=== PATIENT | female | born 1995 | race Caucasian/White ===

== ENCOUNTER 2016-06-03 21:05 | Emergency (ER) | payer OTHER ==
--- NOTE | 2016-06-03 21:21 | ER Document Report ---
[id number] by provider: 21:17 Mode of Arrival: Ambulatory Information source: Patient - HPI Patient complains to provider of: VOMITING AND BLOODY STOOLS Onset: This morning Onset/Duration: Sudden Quality of pain: Sharp, Stabbing Severity: Moderate Pain Level: 3 Associated Symptoms: Abdominal pain, Diarrhea - STARTED OUT DIARRHEA, NOW BLOODY. MULTIPLE STOOL. DENIES RECENT ANTIBIOTIC USE., Nausea, Vomiting. denies: Fever Exacerbated by: Denies Relieved by: Denies Similar symptoms previously: No Recently seen / treated by doctor: No - Related Data Smoking: Non-smoker Frequency of alcohol use: None Drug Abuse: None Pertinent History: ASTHMA Allergies/Adverse Reactions: Penicillins Allergy (Verified 06/03/16 21:19) Sulfa (Sulfonamide Antibiotics) Allergy (Verified 06/03/16 21:19) Physical Exam - Vital signs Vitals: Temp Pulse Resp BP Pulse Ox 97.6 F 92 18 133/90 H 97 06/03/16 21:09 06/03/16 21:09 06/03/16 21:09 06/03/16 21:09 06/03/16 21:09 Course - Vital Signs Vital signs: Temp Pulse Resp BP Pulse Ox 97.6 F 92 18 133/90 H 97 06/03/16 21:09 06/03/16 21:09 06/03/16 21:09 06/03/16 21:09 06/03/16 21:09
[2016-06-03 21:42] LABS: ABSOLUTE EOSINOPHILS # (AUTO) 0.3 10^3/uL (0.0-0.6); ABSOLUTE LYMPHOCYTES (AUTO) 1.5 10^3/uL (0.5-4.7); ABSOLUTE MONOCYTES (AUTO) 0.6 10^3/uL (0.1-1.4); ABSOLUTE NEUT (AUTO) 6.1 10^3/uL (1.7-8.2); BASOPHILS % (AUTO) 0.2 % (0-2); EOSINOPHILS % (AUTO) 3.8 % (0-6); HEMATOCRIT 37.9 % (36.0-47.0); HEMOGLOBIN 12.9 g/dL (12.0-15.5); HGB HCT DIFFERENCE 0.8; LYMPHOCYTES % (AUTO) 17.5 % (13-45); MEAN CORPUSCULAR HEMOGLOBIN 30.3 pg (27.0-33.4); MEAN CORPUSCULAR HGB CONC 34.2 g/dL (32.0-36.0); MEAN CORPUSCULAR VOLUME 89 fl (80-97); MONOCYTES % (AUTO) 6.7 % (3-13); RED BLOOD COUNT 4.27 10^6/uL (3.72-5.28); RED CELL DISTRIBUTION WIDTH 12.6 % (11.5-14.0); SEGMENTED NEUTROPHILS % (AUTO) 71.8 % (42-78); WHITE BLOOD COUNT 8.6 10^3/uL (4.0-10.5)
[2016-06-03 21:55] LABS: ALANINE AMINOTRANSFERASE 35 U/L (9-52); ALBUMIN 4.8 g/dL (3.5-5.0); ALKALINE PHOSPHATASE 90 U/L (38-126); ANION GAP 12 (5-19); ASPARTATE AMINO TRANSFERASE 28 U/L (14-36); BILIRUBIN,TOTAL 0.9 mg/dL (0.2-1.3); BLOOD UREA NITROGEN 10 mg/dL (7-20); CALCIUM 9.7 mg/dL (8.4-10.2); CARBON DIOXIDE 26 mmol/L (22-30); CHLORIDE 104 mmol/L (98-107); GLUCOSE 95 mg/dL (75-110); LIPASE 62.9 U/L (23-300); POTASSIUM 4.1 mmol/L (3.6-5.0); SODIUM 142.2 mmol/L (137-145); TOTAL PROTEIN 8.2 g/dL (6.3-8.2)
[2016-06-03 22:20] LABS: APPEARANCE,URINE CLEAR; BILIRUBIN,URINE NEGATIVE (NEGATIVE); GLUCOSE, URINE NEGATIVE (NEGATIVE); KETONES,URINE NEGATIVE (NEGATIVE); LEUKOCYTE ESTERASE,URINE NEGATIVE (NEGATIVE); NITRITE,URINE NEGATIVE (NEGATIVE); PROTEIN,URINE NEGATIVE (NEGATIVE); URINE SPECIFIC GRAVITY 1.021; UROBILINOGEN,URINE NEGATIVE mg/dL (<2.0)
[2016-06-03] MEDS ORDERED: ONDANSETRON 4 MG TAB.RAPDIS PO ONE (22:25)
[2016-06-03] MEDS ORDERED: DICYCLOMINE HCL 20 MG TABLET PO ONE (22:26)
--- NOTE | 2016-06-03 23:04 | ER Document Report ---
[id number] 4d VOMITING AND BLOODY STOOLS Mode of Arrival: Ambulatory Notes: Patient is a 21-year-old old female presents with complaint of vomiting and diarrhea. She says that she's had clear emesis without any blood or emesis. No fevers. She has had some crampy abdominal pain. She has noticed blood in her stool and it has been watery. This is first time she ever noticed blood in her stool. No recent troubles of the country. She developed that she has a dog and and is up-to-date vaccinations and shots. She does not drink untreate water. No recent antibiotics use. No other complaints at this time. - Related Data Allergies/Adverse Reactions: Penicillins Allergy (Verified 06/03/16 21:19) Sulfa (Sulfonamide Antibiotics) Allergy (Verified 06/03/16 21:19) Past Medical History - General Information source: Patient - Social History Smoking Status: Never Smoker Frequency of alcohol use: None Drug Abuse: None Family History: Reviewed & Not Pertinent Patient has suicidal ideation: No Patient has homicidal ideation: No Renal/ Medical History: Denies: Hx Peritoneal Dialysis Review of Systems - Review of Systems Notes: My Normal Review Basic REVIEW OF SYSTEMS: CONSTITUTIONAL : Denies fever, chills, or sweats. Denies recent illness. RESPIRATORY: Denies cough, cold, or chest congestion. Denies shortness of breath, difficulty breathing, or wheezing. GASTROINTESTINAL: Crampy lower abdominal pain. Some vomiting. Bloody diarrhea.. Denies constipation. GENITOURINARY: Denies difficulty urinating, painful urination, burning, frequency, or blood in urine. FEMALE GENITOURINARY: Denies vaginal bleeding, abnormal or irregular periods. LMP: MUSCULOSKELETAL: Denies neck or back pain or joint pain or swelling. SKIN: Denies rash or skin lesions. NEUROLOGICAL: Denies altered mental status or loss of consciousness. Denies headache. Denies weakness or paralysis or loss of use of either side. Denies problems with gait or speech. Denies sensory or motor loss. ALL OTHER SYSTEMS REVIEWED AND NEGATIVE. Physical Exam - Vital signs Vitals: Temp Pulse Resp BP Pulse Ox 97.6 F 92 18 133/90 H 97 06/03/16 21:09 06/03/16 21:09 06/03/16 21:09 06/03/16 21:09 06/03/16 21:09 - Notes Notes: General Appearance: Well nourished, alert, cooperative, no acute distress, no obvious discomfort. Well-appearing. Vitals: reviewed, See vital signs table. Head: no swelling or tenderness to the head Eyes: PERRL, EOMI, Conjuctiva clear Mouth: No decreasd moisture Neck: Supple, no neck tenderness, No thyromegaly Lungs: No wheezing, No rales, No rhonci, No accessory muscle use, good air exchange bilaterally. Heart: Normal rate, Regular rythm, No murmur, no rub Abdomen: Normal BS, soft, No rigidity, mild lower abdominal tenderness to palpation, No guarding, no rebound, no abdominal masses, no organomegaly Rectal exam: No gross blood on external rectal exam. No hemorrhoids. No fissures. Extremities: strength 5/5 in all extremities, good pulses in all extremities, no swelling or tenderness in the extremities, no edema. Skin: warm, dry, appropriate color, no rash Neuro: speech clear, oriented x 3, normal affect, responds appropriately to questions. Course - Vital Signs Vital signs: Temp Pulse Resp BP Pulse Ox 97.9 F 78 16 128/78 H 99 06/04/16 00:10 06/04/16 00:10 06/04/16 00:10 06/04/16 00:10 06/04/16 00:10 - Laboratory Result Diagrams: 06/03/16 21:20 06/03/16 21:20 Laboratory results interpreted by me: 06/03/16 22:00 Stool for White Cells MANY H - Transfer of Care Notes: 06/04/16 00:48 I suspect that the patient probably has infectious diarrhea. Suspect this she developed vomiting and diarrhea sore time and that she has some blood in her stool. Her CBC is completely normal. Chemistry panels normal. Her C. difficile testing is negative. Her stools been sent for culture and the culture results are pending. I will place her on Cipro. She has no history of inflammatory bowel disease. I think this is unlikely; however, I informed her that if she can do 70 blood in her stool after 3-4 days and she should follow- up with GI physician. Informed her to return to ER immediately if the bleeding gets worse, she has fevers, worsening pain, or feels unwell. The patient agrees with plan and will be discharged home. I did inform her to call the culture follow up number to get the results for stool cultures. Dictation of this chart was performed using voice recognition software; therefore, there may be some unintended grammatical errors. Discharge - Discharge Clinical Impression: Bloody diarrhea Condition: Good Disposition: HOME, SELF-CARE Additional Instructions: VOMITING: Vomiting (or nausea without vomiting) can be caused by many other different problems. It can mean that something's wrong with the stomach, such as ulcers or inflammation or the intestinal tract, such as appendicitis. But it can also be a symptom of a problem that has nothing to do with the stomach or intestines. Vomiting is common with severe headaches, earaches, tonsillitis, and kidney infections, etc. We see it with pneumonia or heart attacks. Drugs can cause nausea and vomiting. Many abdominal problems cause vomiting; for example, gallstones, kidney stones, pancreatitis, and intestinal obstruction ( blocked bowels). In most cases, curing the vomiting depends on fixing the problem that caused it. For temporary relief, we may use an anti-nausea medicine. For home use, we can prescribe suppositories, chewable pills, pills that dissolve in the mouth, or liquid anti-nausea drugs. If the vomiting seems to be caused by a problem in the stomach, acid-suppressing drugs may be prescribed as well. It's important to avoid dehydration. Sip small amounts of clear liquids ( soft drinks, tea, broth, etc) . Try to take fluids frequently even if you are vomiting to prevent dehydration. Take increasing amounts of fluid and when liquids are being consumed successfully, advance to small amounts of bland food (toast, soups, mashed potatoes, etc.) until you are able to resume a regular diet. Avoid aspirin, tobacco, and alcohol. If the vomiting worsens, if the problem that's making you vomit worsens, or if there's evidence of bleeding in the stomach (such as black, tarry stool, or bloody or black vomit), you should return immediately. Also, return if abdominal pain worsens or becomes localized to one area or you develop high fever. Call your doctor if you aren't improved in 24 hours. DIARRHEA, NON-SPECIFIC: Diarrhea means frequent, watery stools. There are many causes. Any problem that keeps the intestinal tract from absorbing water from the stool can lead to diarrhea. A sudden new diarrhea problem is usually caused by a virus, food sensitivity, toxic bacteria, or drugs. In this case, we expect the problem to go away soon. Testing is done only if you seem seriously ill from the diarrhea. If you have chronic diarrhea, or diarrhea that keeps coming back, we need to find out why. Chronic diarrhea can be due to inflammation of the bowels such as Crohn's disease or ulcerative colitis, food sensitivity such as intolerance to lactose or wheat protein, irritable bowel syndrome, and other problems. If your diarrhea is a significant problem but it's not clear why you have it, we' ll refer you to a specialist for further testing. During an episode of diarrhea, drink small amounts (two to six ounces) of clear liquids (soft drinks, sport drinks, herb teas, broth, etc). Take fluids frequently to prevent dehydration. As the diarrhea eases, advance to small amounts of bland food (mashed potato, toast) for 24 hours. Call the physician if blood appears in your vomit or stool, if vomiting lasts longer than 24 hours, if the abdominal pain worsens or becomes localized to one area, if you develop high fever, or if you become lightheaded and weak. ANTINAUSEA MEDICATION: You have been given a medication to suppress nausea and vomiting. This type of medication can be given as a shot, pill, or suppository. It will usually last for many hours. Pills and shots usually last six to eight hours. For the typical illness, only one or two doses of the medication may be necessary. Mild lightheadedness may occur. This type of medicine can cause drowsiness. Do not drive or operate dangerous machinery while under its influence. Do not mix with alcohol. See your doctor at once if you have muscle spasms or tightness, or uncontrollable motions (particularly of the neck, mouth, or jaw). Persistent vomiting or severe lightheadedness should also be evaluated by the physician. FOLLOW-UP CARE: If you have been referred to a physician for follow-up care, call the physician s office for an appointment as you were instructed or within the next two days. If you experience worsening or a significant change in your symptoms, notify the physician immediately or return to the Emergency Department at any time for re-evaluation. Please take the antibiotics as prescribed. The antibiotic is called ciprofloxacin. It is known on rare occasions to cause weakness in the tendons. Do not do any exertional activities or sports activities until 2 weeks after antibiotic course is completed. Please follow-up with Dr. Javed, the GI physician, for reevaluation if you continue to have any blood in her stool after 3-4 days. Please return to ER immediately if you have recurrent heavy bleeding, fevers, intractable vomiting, worsening pain, or feel that you are becoming more ill in any way. Please follow-up with us or a physician in 2 days for reevaluation. Please call the culture call back number at [phone] to get your stool culture results. Prescriptions: Ciprofloxacin HCl [Cipro 500 mg Tablet] 500 mg PO BID #10 tablet Dicyclomine HCl [Bentyl 20 mg Tablet] 20 mg PO TID #30 tablet Ondansetron [Zofran Odt 4 mg Tablet] 1 tab PO Q4H PRN #15 tab.rapdis PRN Reason: For Nausea/Vomiting Forms: Return to Work Referrals: MOHINDER JAVED MD [ACTIVE STAFF] - Follow up in 3-5 days
[2016-06-03] MEDS ORDERED: CIPROFLOXACIN HCL 500 MG TABLET PO ONE (23:33)
[2016-06-04 00:12] VITALS: BP 128/78
== END 2016-06-04 00:12 | disposition home or self-care (01) ==
LOC: ER 21:05
DX: K92.1 Melena (principal); R11.10 Vomiting, unspecified; R19.7 Diarrhea, unspecified; Z88.0 Allergy status to penicillin; Z88.2 Allergy status to sulfonamides; R10.30 Lower abdominal pain, unspecified
CPT/HCPCS: 99284; 36415; 87045; 89055; 87205; 87209; 83690; 87177; 84703; 85025; 82272; 80053; 81001; 87493 ×2; J3490; S0119